=== PATIENT | female | born 1995 ===

== ENCOUNTER 2024-04-16 21:21 | Outpatient (CLI) | payer OTHER ==
--- NOTE | 2024-04-20 00:02 | Ultrasound Report ---
PROCEDURE: Transvaginal INDICATIONS: OVARIAN CYST TECHNIQUE: Real-time endovaginal scanning was performed of the pelvic organs, with image documentation. COMPARISON: None. FINDINGS: Uterus: Uterus is anteverted and normal in size at 8.2 x 3.8 x 5.6 cm. The myometrium is heterogene ous. The endometrium measures 7 mm in combined thickness. Ovaries: The right ovary measures 2.2 x 3.4 cm, with a calculated ovarian volume of 16.2 cc. The le ft ovary measures 5.1 x 3.4 x 4.5 cm, with a calculated ovarian volume of 40.8 cc. The ovaries have a normal sonographic appearance. Greater than 12 follicles can be seen in each ovary. No adnexal ma sses are seen. There is a simple left ovarian cyst measuring 2.0 x 3.2 x 3.2 cm Other: No pathologic free abdominal or pelvic fluid. IMPRESSION: Greater than 12 follicles can be seen in each ovary, which can be seen in the clinical setting of PCO S. Left ovarian simple cyst measuring up to 3.2 cm. Reviewed by: Cristela Kan MD, PhD on 04/20/2024 12:00 AM PDT Approved by: Cristela aKn MD, PhD on 04/20/2024 12:00 AM PDT Station ID: [id number]
== END 2024-04-16 21:22 | disposition home or self-care (01) ==
LOC: DI 21:21
PROVIDERS: ATTEND Nurse Practitioner Family
DX: N83.292 Other ovarian cyst, left side (principal)